=== PATIENT | male | born 1995 | race Two or more races ===

== ENCOUNTER 2022-11-16 17:38 | Emergency (ER) | payer SELFPAY ==
[~2022-11-16] VITALS: Ht 177.8 cm; Wt 72.8 kg
[2022-11-16] MEDS ORDERED: PROCHLORPERAZINE EDISYLATE 5 MG/ML 2ML VIAL IM ONE (18:15)
[2022-11-16] MEDS ORDERED: PANTOPRAZOLE 40 MG/10 ML VIAL INJ IV ONE (18:15)
[2022-11-16 18:17] VITALS: BP 143/93
[2022-11-16 18:31] LABS: Basophils # (auto) 0 10 ^3/uL (0-0.2); Basophils % (auto) 0.5 % (0.0-2.0); Eosinophils # (auto) 0 10 ^3/uL (0-0.8); Hemoglobin 15.8 g/dL (13.5-17.5); Lymphocytes # (auto) 1.1 10 ^3/uL (0.4-5.4); Lymphocytes % (auto) 13.5 % (10.0-50.0); Mean Corpuscular Hemoglobin 32.2 pg (28.0-32.0); Mean Corpuscular Hgb Conc. 33.7 g/dL (32.0-36.0); Mean Corpuscular Volume 95.5 fL (80.0-100.0); Monocytes # (auto) 0.7 10 ^3/uL (0-1.3); Monocytes % (auto) 8.8 % (0.0-12.0); Neutrophils # (auto) 6.5 10 ^3/uL (1.6-8.6); Neutrophils % (auto) 77.2 % (37.0-80.0); Nucleated Red Blood Cells % 0.4 %; Red Blood Cells 4.92 10^6/uL (4.5-5.90); Red Cell Distribution Width 13.1 % (11.8-14.3); White Blood Cell 8.4 10^3/uL (4.4-10.8)
[2022-11-16 18:45] LABS: Calcium 8.9 mg/dL (8.5-10.1)
[2022-11-16 18:48] LABS: Bilirubin, Total 1.6 mg/dL (0.2-1.0); Total Protein 8.9 g/dL (6.4-8.2)
[2022-11-16 18:50] LABS: Potassium 2.9 mmol/L (3.5-5.1)
[2022-11-16] MEDS ORDERED: LACTATED RINGER'S 2,000 ML IV ONE (19:30)
[2022-11-16] MEDS ORDERED: POTASSIUM EFFERVESENT TAB 25 MEQ PO ONE (19:45)
== END 2022-11-17 00:17 | disposition left against medical advice (07) ==
LOC: ER 17:38
DX: F10.239 Alcohol dependence with withdrawal, unspecified (principal); L75.0 Bromhidrosis; R11.0 Nausea; Z53.21 Procedure and treatment not carried out due to patient leaving prior to being seen by health care provider
CPT/HCPCS: 36415; 80053; 80320; 82010; 83735; 83930; 84443; 85025; 93005; 99281; C9113; J0780